=== PATIENT | female | born 1950 | race Caucasian/White ===

== ENCOUNTER 2018-03-30 20:46 | Emergency (ER) | payer SELFPAY ==
[~2018-03-30] VITALS: Ht 144.8 cm; Wt 55.3 kg
[~2018-03-30 20:46] MED LIST: ESTR.625 PO; GLIP10TA6 PO; LISI-360 PO; LISI20TA PO; METF500T PO; OMEP20TA39 PO; RANI150C PO; RANI300T PO; TYLETAB34 PO; VENTAER INH
[2018-03-30 20:49] VITALS: BP 158/65; PULSE 115; RESP 20; TEMP 98.6; O2SAT 98
[2018-03-30] MEDS ORDERED: NOVOLOGP2 SQ (21:03)
[2018-03-30] MEDS ORDERED: CLIN150C14 PO (21:16)
--- NOTE | 2018-03-30 21:16 | PD ---
HPI Chief Complaint: Bite or Sting Time Seen by Provider: 20:59 Travel History International Travel<30 days: No Contact w/Intl Traveler<30days: No Traveled to known affect area: No History of Present Illness HPI 67 years old female complains of dog bite to the right side of the abdomen and also to the right leg. Patient states that young pit bull bit and scratch her this evening. Patient states that she was bleeding from the right side abdomen wall and right lower leg. Patient denies any other injury. Patient complains of burning pain to the right side abdomen and right lower leg. Patient states that she is up-to-date with TD booster. Patient has history of diabetes, hypertension, asthma. PFSH Past Medical History Asthma: Yes Autoimmune Disease: Yes (RA) Cancer: Yes (SKIN CANCER) Cardiac Catheterization: Yes (NEGATIVE) Cardiovascular Problems: Yes (HTN) High Cholesterol: Yes Chemotherapy: No Chest Pain: Yes Cerebrovascular Accident: Yes Diabetes: Yes Patient Takes Glucophage: Yes Diminished Hearing: Yes (bilateral hearing aids.) Endocrine: No GERD: Yes Genitourinary: Yes (PT STATES SHE HAS 3 KIDNEYS AND TWO URINARY TUBES) Hypertension: Yes Immune Disorder: No Implanted Vascular Access Dvce: Yes Musculoskeletal: No Neurologic: No Psychiatric: No Reproductive: No Respiratory: Yes Immunizations Current: Yes Radiation Therapy: No Thyroid Disease: Yes (HYPO) Tetanus Vaccination: < 5 Years Influenza Vaccination: Yes ?: Not Menopausal: Yes : 5 Para: 5 Miscarriage: 0 : 0 Past Surgical History Appendectomy: Yes Cardiac Surgery: Yes Section: Yes (X3) Eye Surgery: Yes (CATARACTS) Gynecologic Surgery: Yes (3 C-SECTIONS, HYSTERECTOMY) Hysterectomy: Yes Joint Replacement: Yes (RIGHT ELBOW) Other Surgery: Yes (NASAL SX/BLADDER SLING,BREAST IMPANTS) Social History Alcohol Use: No Tobacco Use: No Substance Use: No Allergies-Medications (Allergen,Severity, Reaction): Coded Allergies: aspirin (Unverified Allergy, Severe, Rash, 03/30/18) butorphanol (Unverified Allergy, Severe, 03/30/18) ketorolac (Unverified Allergy, Severe, 03/30/18) nalbuphine (Unverified Allergy, Severe, 03/30/18) penicillin G (Unverified Allergy, Severe, 03/30/18) prochlorperazine (Unverified Allergy, Severe, 03/30/18) Reported Meds & Prescriptions Reported Meds & Active Scripts Active Reported Novolog Inj (Insulin Aspart) 1,000 Unit/10 Ml Vial 0 SQ DIRECTED Sliding Scale as directed. Glipizide 10 Mg Tab 10 Mg PO BIDAC Take 30 minutes before a meal Ventolin Hfa 18 GM Inh (Albuterol Sulfate) 90 Mcg/Act Aer 2 Puff INH Q6H PRN Lisinopril-Hctz 20-12.5 Mg Tab 1 Tab PO DAILY Ranitidine (Ranitidine HCl) 150 Mg Cap 150 Mg PO DAILY Metformin (Metformin HCl) 500 Mg Tab 500 Mg PO BIDPC With meals Review of Systems General / Constitutional: No: Fever Eyes: No: Visual changes HENT: No: Headaches Cardiovascular: No: Chest Pain or Discomfort Respiratory: No: Shortness of Breath Gastrointestinal: No: Abdominal Pain Genitourinary: No: Dysuria Musculoskeletal: No: Pain Skin: No Rash Neurologic: No: Weakness Psychiatric: No: Depression Endocrine: No: Polydipsia Hematologic/Lymphatic: No: Easy Bruising Physical Exam Narrative GENERAL: Well-nourished, well-developed patient. SKIN: Focused skin assessment warm/dry. HEAD: Normocephalic. EYES: No scleral icterus. No injection or drainage. NECK: Supple, trachea midline. No JVD or lymphadenopathy. CARDIOVASCULAR: Regular rate and rhythm without murmurs, gallops, or rubs. RESPIRATORY: Breath sounds equal bilaterally. No accessory muscle use. GASTROINTESTINAL: Abdomen soft, non-tender, nondistended. MUSCULOSKELETAL: No cyanosis, or edema. BACK: Nontender without obvious deformity. No CVA tenderness. Patient has several abrasions the right side abdominal wall. No active bleeding. Patient has several abrasions lateral aspect the right lower leg. No active bleeding. No bony tenderness on palpation of the leg. Data Data Last Documented VS Vital Signs Date Time Temp Pulse Resp B/P (MAP) Pulse Ox O2 Delivery O2 Flow Rate FiO2 03/30/18 20:49 98.6 115 20 158/65 (96) 98 Orders Orders Wound Care (03/30/18 21:05) MDM Medical Decision Making Medical Screen Exam Complete: Yes Emergency Medical Condition: Yes Differential Diagnosis Differential diagnosis including abrasions, lacerations. Narrative Course 67 years old female with abrasions. Right-sided abdominal wall and also right lower leg from a dog bite and scratch. Patient is up-to-date with TD booster. Clindamycin 300 mg p.o. given. Polysporin ointment with dressing applied to the wounds. Diagnosis Primary Impression: Abdominal wall abrasion Qualified Codes: S30.811A - Abrasion of abdominal wall, initial encounter Additional Impressions: Abrasion, right lower leg, initial encounter Dog bite Qualified Codes: W54.0XXA - Bitten by dog, initial encounter Patient Instructions: General Instructions Additional Instructions: Wound care daily. Clindamycin as directed. Follow-up with personal physician. Return if increasing redness swelling. Med/Other Pt SpecificInfo: Prescription(s) given Scripts Clindamycin (Clindamycin) 150 Mg Cap 300 MG PO TID for Infection, #30 CAP 0 Refills Prov: Peter Lux MD 03/30/18 Disposition: 01 DISCHARGE HOME Condition: Stable Peter Lux MD March 30, 2018 21:16
== END 2018-03-30 21:41 | disposition home or self-care (01) ==
LOC: PHEFT 20:46
DX: S30.811A Abrasion of abdominal wall, initial encounter (principal); S80.811A Abrasion, right lower leg, initial encounter; E11.9 Type 2 diabetes mellitus without complications; I10 Essential (primary) hypertension; J45.909 Unspecified asthma, uncomplicated; E78.00 Pure hypercholesterolemia, unspecified; E03.9 Hypothyroidism, unspecified; W54.0XXA Bitten by dog, initial encounter; Z86.73 Personal history of transient ischemic attack (TIA), and cerebral infarction without residual deficits
CPT/HCPCS: 99283

== ENCOUNTER 2018-04-30 18:45 | Emergency (ER) | payer OTHER ==
[~2018-04-30] VITALS: Ht 162.6 cm; Wt 65.0 kg
[~2018-04-30 18:45] MED LIST changes: +CLIN150C14 PO; -ESTR.625 PO; -LISI-360 PO; +NOVOLOGP2 SQ; -OMEP20TA39 PO; -RANI300T PO; -TYLETAB34 PO
[2018-04-30 20:25] VITALS: BP 176/84; PULSE 100; RESP 20; TEMP 98.3; O2SAT 100
[2018-04-30 20:32] VITALS: BP 177/84; PULSE 104; RESP 16; O2SAT 99
[2018-04-30] MEDS ORDERED: GLUCAGON 1 MG/ML VIAL IV PUSH ONE (20:45)
[2018-04-30] MEDS ORDERED: SODIUM CHLORID 0.9% 500 ML INJ 500 ML IV ONE (20:45)
--- NOTE | 2018-04-30 20:53 | PD ---
HPI . pt feels FB in esophagus Chief Complaint: Respiratory Symptoms Time Seen by Provider: 20:34 Travel History International Travel<30 days: No Contact w/Intl Traveler<30days: No Traveled to known affect area: No History of Present Illness HPI pt has FB sensation in her throat after eat hotdogs and potatoe chip that started tonight . pt has history of prior FB steak stuck last year and GI removal EGD then dilation of a ring web ring , Now can not swallow fluid spitting up little bits of fluid she is able to talk .. no drooling, it started 2 hrs prior to presentation to ER . She did not take anything to alleviate the symptoms .. PFSH Past Medical History Asthma: Yes Autoimmune Disease: Yes (RA) Cancer: Yes (SKIN CANCER) Cardiac Catheterization: Yes (NEGATIVE) Cardiovascular Problems: Yes (HTN) High Cholesterol: Yes Chemotherapy: No Chest Pain: Yes Cerebrovascular Accident: Yes Diabetes: Yes Patient Takes Glucophage: Yes Diminished Hearing: Yes (bilateral hearing aids.) Endocrine: No GERD: Yes Genitourinary: Yes (PT STATES SHE HAS 3 KIDNEYS AND TWO URINARY TUBES) Hypertension: Yes Immune Disorder: No Implanted Vascular Access Dvce: Yes Musculoskeletal: No Neurologic: No Psychiatric: No Reproductive: No Respiratory: Yes Immunizations Current: Yes Radiation Therapy: No Thyroid Disease: Yes (HYPO) Tetanus Vaccination: < 5 Years Influenza Vaccination: Yes ?: Not Menopausal: Yes : 5 Para: 5 Miscarriage: 0 : 0 Past Surgical History Appendectomy: Yes Cardiac Surgery: Yes Section: Yes (X3) Eye Surgery: Yes (CATARACTS) Gynecologic Surgery: Yes (3 C-SECTIONS, HYSTERECTOMY) Hysterectomy: Yes Joint Replacement: Yes (RIGHT ELBOW) Other Surgery: Yes (NASAL SX/BLADDER SLING,BREAST IMPANTS) Social History Alcohol Use: No Tobacco Use: No Substance Use: No Allergies-Medications (Allergen,Severity, Reaction): Coded Allergies: aspirin (Unverified Allergy, Severe, Rash, 03/30/18) butorphanol (Unverified Allergy, Severe, 03/30/18) ketorolac (Unverified Allergy, Severe, 03/30/18) nalbuphine (Unverified Allergy, Severe, 03/30/18) penicillin G (Unverified Allergy, Severe, 03/30/18) prochlorperazine (Unverified Allergy, Severe, 03/30/18) Reported Meds & Prescriptions Reported Meds & Active Scripts Active Reported Novolog Inj (Insulin Aspart) 1,000 Unit/10 Ml Vial 0 SQ DIRECTED Sliding Scale as directed. Glipizide 10 Mg Tab 10 Mg PO BIDAC Take 30 minutes before a meal Ventolin Hfa 18 GM Inh (Albuterol Sulfate) 90 Mcg/Act Aer 2 Puff INH Q6H PRN Lisinopril-Hctz 20-12.5 Mg Tab 1 Tab PO DAILY Ranitidine (Ranitidine HCl) 150 Mg Cap 150 Mg PO DAILY Metformin (Metformin HCl) 500 Mg Tab 500 Mg PO BIDPC With meals Review of Systems Except as stated in HPI: all other systems reviewed are Neg Gastrointestinal: Positive: Dysphagia (FB sensation throat), Other Physical Exam Narrative GENERAL: able to talk no drooling and no signs of distrss or resp distress no choking SKIN: Warm and dry. HEAD: Atraumatic. Normocephalic. EYES: Pupils equal and round. No scleral icterus. No injection or drainage. ENT: No nasal bleeding or discharge. Mucous membranes pink and moist. NECK: Trachea midline. No JVD. CARDIOVASCULAR: Regular rate and rhythm. RESPIRATORY: No accessory muscle use. Clear to auscultation. Breath sounds equal bilaterally. GASTROINTESTINAL: Abdomen soft, non-tender, nondistended. Hepatic and splenic margins not palpable. MUSCULOSKELETAL: Extremities without clubbing, cyanosis, or edema. No obvious deformities. NEUROLOGICAL: Awake and alert. No obvious cranial nerve deficits. Motor grossly within normal limits. Five out of 5 muscle strength in the arms and legs. Normal speech. PSYCHIATRIC: Appropriate mood and affect; insight and judgment normal. Data Data Last Documented VS Vital Signs Date Time Temp Pulse Resp B/P (MAP) Pulse Ox O2 Delivery O2 Flow Rate FiO2 05/01/18 00:13 16 164/82 (109) 96 04/30/18 20:32 16 Room Air 04/30/18 20:[address] Soft Tiss Neck W/O Iv Cont (04/30/18 ) Glucagon Inj (Glucagon Inj) (04/30/18 20:45) Complete Blood Count With Diff (04/30/18 20:43) Comprehensive Metabolic Panel (04/30/18 20:43) Lipase (04/30/18 20:43) Group A Rapid Strep Screen (04/30/18 20:43) Sodium Chlorid 0.9% 500 Ml Inj (Ns 500 M (04/30/18 20:45) Glucagon Inj (Glucagon Inj) (04/30/18 21:00) Strep Culture (Group A) (04/30/18 20:47) Ed Discharge Order (05/01/18 00:04) Labs Laboratory Tests Test 04/30/18 20:47 White Blood Count 12.5 TH/MM3 Red Blood Count 4.09 MIL/MM3 Hemoglobin 13.3 GM/DL Hematocrit 38.9 % Mean Corpuscular Volume 95.2 FL Mean Corpuscular Hemoglobin 32.5 PG Mean Corpuscular Hemoglobin Concent 34.1 % Red Cell Distribution Width 13.6 % Platelet Count 316 TH/MM3 Mean Platelet Volume 9.6 FL CBC Comment AUTO DIFF Differential Total Cells Counted 100 Neutrophils % (Manual) 60 % Lymphocytes % 37 % Monocytes % 2 % Eosinophils % 1 % Neutrophils # (Manual) 7.5 TH/MM3 Differential Comment FINAL DIFF MANUAL Platelet Estimate NORMAL Platelet Morphology Comment NORMAL Blood Urea Nitrogen 7 MG/DL Creatinine 0.70 MG/DL Random Glucose 263 MG/DL Total Protein 8.7 GM/DL Albumin 4.5 GM/DL Calcium Level 9.8 MG/DL Alkaline Phosphatase 80 U/L Aspartate Amino Transf (AST/SGOT) 42 U/L Alanine Aminotransferase (ALT/SGPT) 46 U/L Total Bilirubin 0.2 MG/DL Sodium Level 136 MEQ/L Potassium Level 4.2 MEQ/L Chloride Level 100 MEQ/L Carbon Dioxide Level 24.3 MEQ/L Anion Gap 12 MEQ/L Estimat Glomerular Filtration Rate 84 ML/MIN Lipase 307 U/L [facility] Medical Decision Making Medical Screen Exam Complete: Yes Emergency Medical Condition: Yes Medical Record Reviewed: Yes Differential Diagnosis FB vs scratched esophagus vs strep throat vs other Narrative Course Pt given IV fluid Glucagon 1 MG IM and observed and then PO challenge she feels as if the FB has passed out of esophagus ready for DIscharte told to call her GI MD in AM Diagnosis Primary Impression: Sore throat Additional Impression: Foreign body sensation in throat Patient Instructions: Esophageal Foreign Body (ED), General Instructions Additional Instructions: Follow-up with her welt stitch cleaner tomorrow return to the ER for any worsening symptoms Disposition: 01 DISCHARGE HOME Condition: Roger Beyer MD Apr 30, 2018 20:53
[2018-04-30] MEDS ORDERED: GLUCAGON 1 MG/ML VIAL IM ONE (21:00)
--- NOTE | 2018-04-30 21:12 | RADRPT ---
EXAM DATE: 04/30/2018 9:05 PM EDT AGE/SEX: 67 years / Female INDICATIONS: Dysphagia, Foreign body. CLINICAL DATA: This is the patient's initial encounter. Patient reports that signs and symptoms have been present for 1 day and indicates a pain score of 2/10. MEDICAL/SURGICAL HISTORY: Hypertension. Cerebrovascular disease. Rheumatoid arthritis. Diabetes None. RADIATION DOSE: 16.51 CTDI (mGy) COMPARISON: No prior exams available for comparison. TECHNIQUE: Helical acquisition was performed using a multirow detector CT scanner without contrast. Using automated exposure control and adjustment of the mA and/or kV according to patient size, radiat ion dose was kept as low as reasonably achievable to obtain optimal diagnostic quality images. FINDINGS: Nasopharynx: The nasopharyngeal airway has a normal configuration. No mucosal thickening or mass is seen. Oropharynx: The intrinsic muscles of the tongue are symmetric. The tonsillar pillars are intact. T he prevertebral soft tissues are not thickened. Larynx: The supraglottic, glottic, and infraglottic structures are intact. Parapharyngeal: The parapharyngeal space is intact. Salivary Glands: The parotid and submandibular glands are intact. Lymph Nodes: No enlarged nodes. Thyroid: Grossly intact. Bones: Fluid in the sphenoid sinuses. CONCLUSION: 1. Unremarkable CT soft tissue neck. No foreign bodies seen. 2. Sphenoid sinusitis. Electronically signed by: Arcadio Hudson MD 04/30/2018 9:11 PM EDT
[2018-04-30 21:18] LABS: HEMATOCRIT 38.9 % (35.0-46.0); HEMOGLOBIN 13.3 GM/DL (11.6-15.3); MEAN CELL VOLUME 95.2 FL (80.0-100.0); MEAN CORPUSCULAR HEMOGLOBIN 32.5 PG (27.0-34.0); MEAN CORPUSCULAR HGB CONC 34.1 % (32.0-36.0); MEAN PLATELET VOLUME 9.6 FL (7.0-11.0); PLATELET COUNT 316 TH/MM3 (150-450); RED BLOOD COUNT 4.09 MIL/MM3 (4.00-5.30); RED CELL DISTRIBUTION WIDTH 13.6 % (11.6-17.2); WHITE BLOOD COUNT 12.5 TH/MM3 (4.0-11.0)
[2018-04-30 21:35] LABS: ALT (GPT) 46 U/L (10-53)
[2018-04-30 21:37] LABS: ALKALINE PHOSPHATASE 80 U/L (45-117); TOTAL BILIRUBIN ADULT 0.2 MG/DL (0.2-1.0); TOTAL PROTEIN 8.7 GM/DL (6.4-8.2)
[2018-04-30 21:43] LABS: ALBUMIN 4.5 GM/DL (3.4-5.0); AST (GOT) 42 U/L (15-37); BICARBONATE 24.3 MEQ/L (21.0-32.0); BLOOD UREA NITROGEN 7 MG/DL (7-18); CALCIUM 9.8 MG/DL (8.5-10.1); CHLORIDE 100 MEQ/L (98-107); GLOMERULAR FILTRATION RATE 84 ML/MIN (>89); GLUCOSE,RANDOM 263 MG/DL (74-106); SODIUM (NA) 136 MEQ/L (136-145)
[2018-04-30 21:52] LABS: LYMPHOCYTES 37 % (9-44); MONOCYTES 2 % (0-8); NEUTROPHIL # MANUAL DIFF 7.5 TH/MM3 (1.8-7.7); POLYS (SEG NEUTROPHILS) 60 % (16-70)
[2018-05-01 00:13] VITALS: BP 164/82
== END 2018-05-01 00:14 | disposition home or self-care (01) ==
LOC: NEPE 18:45
DX: J02.9 Acute pharyngitis, unspecified (principal); R09.89 Other specified symptoms and signs involving the circulatory and respiratory systems; I10 Essential (primary) hypertension; E78.00 Pure hypercholesterolemia, unspecified; E11.9 Type 2 diabetes mellitus without complications; J45.909 Unspecified asthma, uncomplicated; M06.9 Rheumatoid arthritis, unspecified; Z85.828 Personal history of other malignant neoplasm of skin; Z86.73 Personal history of transient ischemic attack (TIA), and cerebral infarction without residual deficits; Z88.0 Allergy status to penicillin; Z88.8 Allergy status to other drugs, medicaments and biological substances; Z79.84 Long term (current) use of oral hypoglycemic drugs; Z79.4 Long term (current) use of insulin; Z79.899 Other long term (current) drug therapy
CPT/HCPCS: 70490; 80053; 83690; 85007; 85027; 87081; 87880; 96360; 96372; 99284; J1610; J7040